=== PATIENT | male | born 1990 | race Caucasian/White ===

== ENCOUNTER → 2023-04-21 13:14 | Outpatient (REF) | payer OTHER, SELFPAY | LOC: RAD 13:14 | PROVIDERS: ATTENDING PHYSICIAN Internal Medicine; FAMILY PHYSICIAN Nurse Practitioner | DX: K51.011 Ulcerative (chronic) pancolitis with rectal bleeding (principal); K76.9 Liver disease, unspecified | CPT/HCPCS: 76700 ==

== ENCOUNTER → 2023-05-31 06:32 | Day surgery (SDC) | payer OTHER, SELFPAY | LOC: GI 06:32 | PROVIDERS: ATTENDING PHYSICIAN Internal Medicine | DX: K51.20 Ulcerative (chronic) proctitis without complications (principal); K51.018 Ulcerative (chronic) pancolitis with other complication | CPT/HCPCS: 45331; 88305 ==

== ENCOUNTER → 2024-03-17 07:14 | Outpatient (REF) | payer OTHER, SELFPAY | LOC: HWRAD 07:14 | PROVIDERS: ATTENDING PHYSICIAN Nurse Practitioner | DX: E04.1 Nontoxic single thyroid nodule (principal) | CPT/HCPCS: 76536 ==